=== PATIENT | female | born 1940 | race Caucasian/White ===

== ENCOUNTER 2017-12-21 19:27 | Inpatient (IN) | payer MEDICARE ==
[~2017-12-21] VITALS: Ht 167.6 cm; Wt 46.5 kg
[2017-12-21] MEDS ORDERED: SODIUM CHLORIDE 0.9% 1,000 ML IV ONE (20:30)
[2017-12-21 20:41] LABS: Basophils # (auto) 0 uL; Basophils % (auto) 0.9 % (0.0-2.0); Eosinophils # (auto) 0.1 uL; Eosinophils % (auto) 2.3 % (0.0-7.0); Hematocrit 33.9 % (36.0-46.0); Hemoglobin 11.3 g/dL (12.2-16.2); Lymphocytes # (auto) 1.1 uL; Lymphocytes % (auto) 20.6 % (10.0-50.0); Mean Corpuscular Hemoglobin 30.2 pg (28.0-32.0); Mean Corpuscular Hgb Conc. 33.2 g/dL (32.0-36.0); Mean Corpuscular Volume 90.9 fL (80.0-100.0); Monocytes # (auto) 0.4 uL; Monocytes % (auto) 7.7 % (0.0-12.0); Neutrophils # (auto) 3.8 uL; Neutrophils % (auto) 68.5 % (37.0-80.0); Platelet Count (auto) 153 10^3/uL (140-450); Red Blood Cells 3.73 10^6/uL (4.0-5.20); Red Cell Distribution Width 16.5 % (11.8-14.3); White Blood Cell 5.5 10^3/uL (4.4-10.8)
[2017-12-21 20:54] LABS: INR 1.86 (0.9-1.15); Partial Thromboplastin Time 26.4 sec (23.78-33.04); Prothrombin Time 19.2 sec (9.27-12.13)
[2017-12-21 21:03] LABS: Alanine Aminotransferase 42 U/L (13-56); Albumin 2.9 g/dL (3.4-5.0); Alkaline Phosphatase 74 U/L (45-117); Anion Gap 9 (5-15); Aspartate Aminotransferase 31 U/L (15-37); BUN/Creatinine Ratio 29.9; Bilirubin, Total 0.6 mg/dL (0.2-1.0); Blood Urea Nitrogen 40 mg/dL (7-18); Calcium 9.2 mg/dL (8.5-10.1); Carbon Dioxide 28 mmol/L (21-32); Chloride 105 mmol/L (98-107); GFR African American 50 mL/min; GFR Non-African American 41 mL/min; Glucose 227 mg/dL (74-106); Magnesium 2.6 mg/dL (1.6-2.6); Sodium 142 mmol/L (136-145); Total Protein 5.7 g/dL (6.4-8.2)
[2017-12-21 21:07] LABS: Potassium 2.9 mmol/L (3.5-5.1)
[2017-12-22] MEDS ORDERED: POTASSIUM CHL 10% (20 MEQ/15ML) 15ml ORAL SOLN PO ONE (01:00)
[2017-12-22] MEDS ORDERED: NITROGLYCERIN 0.4 MG SL TAB SL PRN (02:30)
[2017-12-22] MEDS ORDERED: MORPHINE SULFATE 8mg/ml INJ SDV IV PRN (02:30)
[2017-12-22] MEDS ORDERED: ONDANSETRON HCL 4 MG/2 ML VIAL IV PRN (02:30)
[2017-12-22] MEDS ORDERED: HYDROcodone-ACET 5/325MG TAB PO PRN (02:30)
[2017-12-22] MEDS ORDERED: DOCUSATE SOD 100 MG CAP PO PRN (02:30)
[2017-12-22] MEDS ORDERED: DEXTROSE (50%) 50ML SYRG IV PRN (02:30)
[2017-12-22] MEDS ORDERED: ACETAMINOPHEN 325 MG TAB PO PRN (02:30)
[2017-12-22] MEDS ORDERED: POTASSIUM CHL 20 Meq TABLET PO ONE (03:00)
[2017-12-22 05:01] VITALS: BP 152/69
[2017-12-22] MEDS: PANTOPRAZOLE 40 MG TAB PO SCH (06:13)
[2017-12-22] MEDS: InsuLIN REG 1unit/0.01ml Soln (100units/ml) SC SCH ×3 (06:19→18:46)
[2017-12-22] MEDS: ACCU-CHEK COMFORT CURVE STRIP VI SCH ×3 (06:19→18:27)
[2017-12-22 09:00] VITALS: BP 162/98
[2017-12-22] MEDS: METOPROLOL TARTRATE 50 MG TAB PO SCH ×2 (09:12→18:46)
[2017-12-22] MEDS: BENAZEPRIL HCL 10 MG TAB PO SCH (11:42)
[2017-12-22] MEDS: ENOXAPARIN SOD 30 MG/0.3 ML SYRINGE SC SCH (11:43)
[2017-12-22] MEDS: DIGOXIN 0.125 MG TAB PO SCH (11:43)
[2017-12-22] MEDS: ALLOPURINOL 100 MG TAB PO SCH (11:43)
[2017-12-22] MEDS ORDERED: IOHEXOL 350 MG/ML 100ML IJ ONE ×2 (12:20→19:54)
[2017-12-22 13:00] VITALS: BP 133/88
[2017-12-22] MEDS ORDERED: HYDR12.56 PO (13:38)
[2017-12-22] MEDS ORDERED: MISCCAP8 OR (13:58)
[2017-12-22] MEDS ORDERED: MULTCAP45 PO (13:58)
[2017-12-22] MEDS ORDERED: CLON0.1T PO (13:58)
[2017-12-22] MEDS ORDERED: METO50TA7 PO (13:58)
[2017-12-22] MEDS ORDERED: CHOL1TAB42 PO (13:58)
[2017-12-22] MEDS ORDERED: SIMV-8 PO (13:58)
[2017-12-22] MEDS ORDERED: WARF2.5T39 PO (13:58)
[2017-12-22] MEDS ORDERED: ALLO100T PO (13:58)
[2017-12-22] MEDS ORDERED: BENA40TA7 PO (13:58)
[2017-12-22] MEDS ORDERED: OMEG1CAP31 PO (13:58)
[2017-12-22] MEDS ORDERED: GLIP-115 PO (13:58)
[2017-12-22 17:00] VITALS: BP 153/86
[2017-12-22] MEDS ORDERED: WARFARIN SODIUM 1 MG TAB PO ONE (17:00)
[2017-12-22] MEDS: FERROUS SULFATE 325 MG TAB PO SCH (18:44)
[2017-12-22] MEDS: PRAVASTATIN SODIUM 20 MG TAB PO SCH (21:54)
[2017-12-22 22:00] VITALS: BP 158/108
[2017-12-22 23:00] VITALS: BP 155/95
[2017-12-23] MEDS: ACCU-CHEK COMFORT CURVE STRIP VI SCH ×4 (00:06→18:00)
[2017-12-23 04:53] VITALS: BP 152/89
[2017-12-23] MEDS: InsuLIN REG 1unit/0.01ml Soln (100units/ml) SC SCH ×5 (05:47→22:00)
[2017-12-23] MEDS: PANTOPRAZOLE 40 MG TAB PO SCH (05:47)
[2017-12-23] MEDS: METOPROLOL TARTRATE 50 MG TAB PO SCH ×2 (08:25→17:58)
[2017-12-23] MEDS: FERROUS SULFATE 325 MG TAB PO SCH ×3 (08:25→17:48)
[2017-12-23 08:30] VITALS: BP 141/120
[2017-12-23] MEDS: DIGOXIN 0.125 MG TAB PO SCH (10:04)
[2017-12-23] MEDS: ALLOPURINOL 100 MG TAB PO SCH (10:04)
[2017-12-23] MEDS: ENOXAPARIN SOD 30 MG/0.3 ML SYRINGE SC SCH (10:04)
[2017-12-23] MEDS: BENAZEPRIL HCL 10 MG TAB PO SCH (10:05)
[2017-12-23 11:32] LABS: INR 2.49 (0.9-1.15); Partial Thromboplastin Time 32.7 sec (23.78-33.04); Prothrombin Time 25.3 sec (9.27-12.13)
[2017-12-23 12:05] LABS: Albumin 3.7 g/dL (3.4-5.0); BUN/Creatinine Ratio 26.1; Bilirubin, Total 0.5 mg/dL (0.2-1.0); Calcium 10.6 mg/dL (8.5-10.1); Potassium 3.7 mmol/L (3.5-5.1); Total Protein 7.7 g/dL (6.4-8.2)
[2017-12-23 12:18] LABS: Basophils # (auto) 0.1 uL; Basophils % (auto) 0.7 % (0.0-2.0); Eosinophils # (auto) 0.1 uL; Eosinophils % (auto) 1.9 % (0.0-7.0); Hematocrit 41.2 % (36.0-46.0); Hemoglobin 13.8 g/dL (12.2-16.2); Lymphocytes # (auto) 1.3 uL; Lymphocytes % (auto) 17.3 % (10.0-50.0); Mean Corpuscular Hemoglobin 30.5 pg (28.0-32.0); Mean Corpuscular Hgb Conc. 33.4 g/dL (32.0-36.0); Mean Corpuscular Volume 91.3 fL (80.0-100.0); Monocytes # (auto) 0.6 uL; Monocytes % (auto) 7.7 % (0.0-12.0); Neutrophils # (auto) 5.3 uL; Neutrophils % (auto) 72.4 % (37.0-80.0); Platelet Count (auto) 177 10^3/uL (140-450); Red Blood Cells 4.51 10^6/uL (4.0-5.20); Red Cell Distribution Width 16.6 % (11.8-14.3); White Blood Cell 7.3 10^3/uL (4.4-10.8)
[2017-12-23 12:30] VITALS: BP 187/107
[2017-12-23] MEDS ORDERED: cloNIDine HCL 0.1 MG TAB PO ONE (13:30)
[2017-12-23] MEDS ORDERED: cloNIDine HCL 0.1 MG TAB PO PRN (13:30)
[2017-12-23] MEDS ORDERED: WARFARIN SODIUM 2.5 MG TAB PO ONE (17:00)
[2017-12-23] MEDS ORDERED: WARFARIN SODIUM 1 MG TAB PO ONE (17:00)
[2017-12-23] MEDS: PRAVASTATIN SODIUM 20 MG TAB PO SCH (22:04)
[2017-12-23 22:32] VITALS: BP 109/82
[2017-12-24 05:09] VITALS: BP 150/94
[2017-12-24] MEDS: ACCU-CHEK COMFORT CURVE STRIP VI SCH ×5 (06:05→22:01)
[2017-12-24] MEDS: PANTOPRAZOLE 40 MG TAB PO SCH (06:15)
[2017-12-24] MEDS: InsuLIN REG 1unit/0.01ml Soln (100units/ml) SC SCH ×4 (06:16→22:01)
[2017-12-24 06:59] LABS: Albumin 3.2 g/dL (3.4-5.0); BUN/Creatinine Ratio 39.4; Calcium 9.8 mg/dL (8.5-10.1); Potassium 3.8 mmol/L (3.5-5.1)
[2017-12-24 07:01] LABS: INR 2.44 (0.9-1.15); Partial Thromboplastin Time 29.2 sec (23.78-33.04); Prothrombin Time 24.8 sec (9.27-12.13)
[2017-12-24 07:02] LABS: Bilirubin, Total 0.5 mg/dL (0.2-1.0)
[2017-12-24 07:14] LABS: Basophils # (auto) 0.1 uL; Basophils % (auto) 1.2 % (0.0-2.0); Eosinophils # (auto) 0.2 uL; Hematocrit 39.7 % (36.0-46.0); Hemoglobin 13.1 g/dL (12.2-16.2); Lymphocytes # (auto) 1.6 uL; Lymphocytes % (auto) 32.5 % (10.0-50.0); Mean Corpuscular Hemoglobin 29.7 pg (28.0-32.0); Mean Corpuscular Hgb Conc. 33.1 g/dL (32.0-36.0); Mean Corpuscular Volume 89.9 fL (80.0-100.0); Monocytes # (auto) 0.3 uL; Neutrophils # (auto) 2.7 uL; Neutrophils % (auto) 55.3 % (37.0-80.0); Platelet Count (auto) 164 10^3/uL (140-450); Red Blood Cells 4.42 10^6/uL (4.0-5.20); Red Cell Distribution Width 16.4 % (11.8-14.3); White Blood Cell 4.9 10^3/uL (4.4-10.8)
[2017-12-24 08:00] VITALS: BP 148/82
[2017-12-24] MEDS: FERROUS SULFATE 325 MG TAB PO SCH ×3 (08:55→17:22)
[2017-12-24] MEDS: METOPROLOL TARTRATE 50 MG TAB PO SCH ×2 (08:56→17:22)
[2017-12-24 08:57] VITALS: BP 148/82
[2017-12-24] MEDS: ALLOPURINOL 100 MG TAB PO SCH (09:14)
[2017-12-24] MEDS: BENAZEPRIL HCL 10 MG TAB PO SCH (09:14)
[2017-12-24] MEDS: DIGOXIN 0.125 MG TAB PO SCH (09:14)
[2017-12-24 12:00] VITALS: BP 153/98
[2017-12-24 16:52] VITALS: BP 159/95
[2017-12-24] MEDS ORDERED: WARFARIN SODIUM 1 MG TAB PO ONE (17:00)
[2017-12-24 22:00] VITALS: BP_SYST 135; BP_SYST 148; BP_DIAS 74; BP_DIAS 88; BP_DIAS 90
[2017-12-24] MEDS: PRAVASTATIN SODIUM 20 MG TAB PO SCH (22:00)
[2017-12-25] VITALS (7 sets, daily range): BP systolic 97–174; BP diastolic 63–108
[2017-12-25] MEDS: PANTOPRAZOLE 40 MG TAB PO SCH (06:09)
[2017-12-25] MEDS: ACCU-CHEK COMFORT CURVE STRIP VI SCH ×3 (06:09→17:39)
[2017-12-25] MEDS: InsuLIN REG 1unit/0.01ml Soln (100units/ml) SC SCH ×3 (06:09→17:38)
[2017-12-25 06:16] LABS: Basophils # (auto) 0.1 uL; Basophils % (auto) 1.1 % (0.0-2.0); Eosinophils # (auto) 0.2 uL; Eosinophils % (auto) 3.7 % (0.0-7.0); Hematocrit 36.9 % (36.0-46.0); Hemoglobin 12.4 g/dL (12.2-16.2); Lymphocytes # (auto) 1.3 uL; Lymphocytes % (auto) 23.6 % (10.0-50.0); Mean Corpuscular Hemoglobin 30.4 pg (28.0-32.0); Mean Corpuscular Hgb Conc. 33.7 g/dL (32.0-36.0); Mean Corpuscular Volume 90.3 fL (80.0-100.0); Monocytes # (auto) 0.4 uL; Neutrophils # (auto) 3.5 uL; Neutrophils % (auto) 63.6 % (37.0-80.0); Nucleated Red Blood Cells % 0.1 %; Platelet Count (auto) 151 10^3/uL (140-450); Red Blood Cells 4.08 10^6/uL (4.0-5.20); Red Cell Distribution Width 16.2 % (11.8-14.3); White Blood Cell 5.5 10^3/uL (4.4-10.8)
[2017-12-25 06:19] LABS: INR 2.4 (0.9-1.15); Partial Thromboplastin Time 28.8 sec (23.78-33.04); Prothrombin Time 24.4 sec (9.27-12.13)
[2017-12-25 06:37] LABS: Potassium 3.9 mmol/L (3.5-5.1)
[2017-12-25 06:47] LABS: BUN/Creatinine Ratio 38.6; Calcium 9.7 mg/dL (8.5-10.1)
[2017-12-25 06:50] LABS: Bilirubin, Total 0.5 mg/dL (0.2-1.0)
[2017-12-25] MEDS: METOPROLOL TARTRATE 50 MG TAB PO SCH (08:30)
[2017-12-25] MEDS ORDERED: SODIUM CHLORIDE 0.9% 1,000 ML IV ONE (09:00)
[2017-12-25] MEDS: BENAZEPRIL HCL 10 MG TAB PO SCH (09:01)
[2017-12-25] MEDS: FERROUS SULFATE 325 MG TAB PO SCH ×3 (10:36→17:38)
[2017-12-25] MEDS: ALLOPURINOL 100 MG TAB PO SCH (10:36)
[2017-12-25] MEDS: DIGOXIN 0.125 MG TAB PO SCH (10:38)
[2017-12-25] MEDS ORDERED: WARFARIN SODIUM 1 MG TAB PO ONE (17:00)
[2017-12-25] MEDS: METOPROLOL TARTRATE 25 MG TAB PO SCH (17:38)
[2017-12-25] MEDS: PRAVASTATIN SODIUM 20 MG TAB PO SCH (21:22)
[2017-12-26] MEDS: ACCU-CHEK COMFORT CURVE STRIP VI SCH ×3 (00:02→12:24)
[2017-12-26] MEDS: PANTOPRAZOLE 40 MG TAB PO SCH (05:21)
[2017-12-26] MEDS: InsuLIN REG 1unit/0.01ml Soln (100units/ml) SC SCH ×3 (05:26→12:24)
[2017-12-26 05:31] VITALS: BP 155/86
[2017-12-26 07:08] LABS: Basophils # (auto) 0 uL; Basophils % (auto) 0.8 % (0.0-2.0); Eosinophils # (auto) 0.2 uL; Eosinophils % (auto) 3.2 % (0.0-7.0); Hematocrit 36.7 % (36.0-46.0); Hemoglobin 12.3 g/dL (12.2-16.2); Lymphocytes % (auto) 19.8 % (10.0-50.0); Mean Corpuscular Hemoglobin 30.4 pg (28.0-32.0); Mean Corpuscular Hgb Conc. 33.6 g/dL (32.0-36.0); Mean Corpuscular Volume 90.5 fL (80.0-100.0); Monocytes # (auto) 0.4 uL; Monocytes % (auto) 7.2 % (0.0-12.0); Neutrophils # (auto) 3.6 uL; Nucleated Red Blood Cells % 0.1 %; Platelet Count (auto) 140 10^3/uL (140-450); Red Blood Cells 4.05 10^6/uL (4.0-5.20); Red Cell Distribution Width 15.9 % (11.8-14.3); White Blood Cell 5.3 10^3/uL (4.4-10.8)
[2017-12-26 07:14] LABS: INR 2.99 (0.9-1.15); Prothrombin Time 30.1 sec (9.27-12.13)
[2017-12-26] MEDS: FERROUS SULFATE 325 MG TAB PO SCH ×2 (07:58→12:24)
[2017-12-26] MEDS: METOPROLOL TARTRATE 25 MG TAB PO SCH (07:59)
[2017-12-26 08:31] LABS: Calcium 9.4 mg/dL (8.5-10.1)
[2017-12-26 08:41] LABS: BUN/Creatinine Ratio 36.4
[2017-12-26 09:29] VITALS: BP 159/98
[2017-12-26] MEDS: DIGOXIN 0.125 MG TAB PO SCH (09:41)
[2017-12-26] MEDS: BENAZEPRIL HCL 10 MG TAB PO SCH (09:42)
[2017-12-26] MEDS: ALLOPURINOL 100 MG TAB PO SCH (09:42)
[2017-12-26 11:54] VITALS: BP 159/98
[2017-12-26 12:33] VITALS: BP 151/76
== END 2017-12-26 15:19 | disposition home or self-care (01) | DRG 315 ==
LOC: EDBD 19:27 → EDSEX 19:27 → ER 19:27 → TELE-WESTW 19:28
PROVIDERS: ADMIT Nurse Practitioner; ATTEND Family Medicine
DX: I95.9 Hypotension, unspecified (principal); D68.59 Other primary thrombophilia; E46 Unspecified protein-calorie malnutrition; N17.9 Acute kidney failure, unspecified; E11.22 Type 2 diabetes mellitus with diabetic chronic kidney disease; N18.3 Chronic kidney disease, stage 3 (moderate); E87.6 Hypokalemia; E11.65 Type 2 diabetes mellitus with hyperglycemia; E66.9 Obesity, unspecified; E78.5 Hyperlipidemia, unspecified; H91.90 Unspecified hearing loss, unspecified ear; I13.10 Hypertensive heart and chronic kidney disease without heart failure, with stage 1 through stage 4 chronic kidney disease, or unspecified chronic kidney disease; I48.2 Chronic atrial fibrillation; I67.2 Cerebral atherosclerosis; I70.8 Atherosclerosis of other arteries; I71.4 Abdominal aortic aneurysm, without rupture; M10.9 Gout, unspecified; N26.1 Atrophy of kidney (terminal); N28.1 Cyst of kidney, acquired; Z79.01 Long term (current) use of anticoagulants; Z79.899 Other long term (current) drug therapy; Z82.0 Family history of epilepsy and other diseases of the nervous system; Z82.49 Family history of ischemic heart disease and other diseases of the circulatory system; Z83.3 Family history of diabetes mellitus; Z95.0 Presence of cardiac pacemaker
CPT/HCPCS: 36415; 70450; 71045; 71275; 74176; 80048; 80053; 82962; 83036; 83735; 83880; 84443; 84484; 85025; 85379; 85610; 85730; 93005; 93306; 93886; 93970; 94761; 95819; 96360; 96361; J1815